=== PATIENT | female | born 1990 | race Two or more races ===

== ENCOUNTER 2020-09-27 19:05 | Emergency (ER) | payer SELFPAY ==
[~2020-09-27] VITALS: Ht 157.5 cm; Wt 87.0 kg
[2020-09-27 22:07] LABS: CLARITY URINE CLEAR (CLEAR); COLOR URINE YELLOW (YELLOW); KETONES URINE TRACE (NEGATIVE); LEUKOCYTE ESTERASE URINE NEGATIVE (NEGATIVE); NITRITE URINE NEGATIVE (NEGATIVE); OCCULT BLOOD URINE NEGATIVE (NEGATIVE); PH URINE 5.5 (4.5-8.0); PROTEIN URINE NEGATIVE (NEGATIVE); SPECIFIC GRAVITY URINE 1.036 (1.005-1.030)
[2020-09-28 02:20] VITALS: BP 118/72
== END 2020-09-28 02:34 | disposition home or self-care (01) ==
LOC: ER 19:05
DX: B34.9 Viral infection, unspecified (principal); E86.0 Dehydration
CPT/HCPCS: 81003; 99285